=== PATIENT | male | born 1945 | race Caucasian/White ===

== ENCOUNTER 2016-06-23 19:41 | Emergency (ER) | payer OTHER ==
[~2016-06-23] VITALS: Ht 167.6 cm; Wt 64.0 kg
[~2016-06-23 19:41] MED LIST changes: -ATROPINE SULFATE 0.1 MG/ML 5ML SYR IV PRN; -BUPIVACAINE/EPINEPHRINE 0.25% 1:200,000 30 ML VIAL ONE; -CEFAZOLIN 2000 MG/60 ML D5W IV SCH; -DEXAMETHASONE SOD INJ 4 MG/ML VIAL ONE; -EpHEDrine SULFATE 50MG/5ML SYR ONE; -EpINEphrine INJ 1MG/ML AMP 1 MG/ML AMP ONE; -FENTANYL CITRATE INJ 50 MCG/1 ML 2 ML VIAL IV PRN; -FENTANYL CITRATE INJ 50 MCG/1 ML 2 ML VIAL ONE; -KETOROLAC TROMETHAMINE 15 MG/ML VIAL IV. PRN; -LABETALOL HCL IV 5 MG/ML 20ML IV PRN; -LACTATED RINGER'S 1000ML 1,000 ML IV SCH; -LIDOCAINE HCL 2% 2 ML VIAL (20MG/ML) ONE; -MIDAZOLAM HCL 1 MG/ML 2ML VIAL ONE; -ONDANSETRON INJ 2 MG/ML 2 ML VIAL IV PRN; -ONDANSETRON INJ 2 MG/ML 2 ML VIAL ONE; -OXYCODONE/ACETAMINOPHEN 5-325 TAB PO PRN; -PROPOFOL IV EMULSION 10 MG/ML 20 ML VIAL IV ONE; -ROPIVACAINE 0.5% 5 MG/ML 30 ML VIAL ONE; -SODIUM CHLORIDE 0.9% 1000ML 1,000 ML IV SCH
[2016-06-23 19:44] VITALS: TEMP 36.6; Ht 167.6 cm; Wt 64.0 kg
[2016-06-23] MEDS ORDERED: GELATIN SPONGE 12-7MM ONE (20:13)
--- NOTE | 2016-06-23 20:16 | EMERGENCY ROOM VISIT NOTE ---
ED Visit Note First contact with patient: 19:48 I did evaluate and examine this patient myself. I did guide management for the patient. I agree with the PA's assessment as discussed. Please see the PAs dictation for further details. The patient is oozing blood from both of his left shoulder incisions. There is no evidence of hematoma. The PA did speak to orthopedics he did not wish to have her placed in a sutures. He recommended a bulky dressing and follow up in the office. I did also recommend some Gelfoam with a bulky dressing to help control the bleeding.
--- NOTE | 2016-06-23 21:00 | EMERGENCY ROOM VISIT NOTE ---
History First contact with patient: 19:48 Chief Complaint: BLEEDING Stated Complaint: POST OP BLEEDING Nursing Triage Summary: Pt reports he had left shoulder surgery this am. Pt was sitting at home when he noticed bleeding from dressing. History of Present Illness The patient is a 71 year old male who presents to the Emergency Room with complaints of postoperative bleeding. The patient states that he had a left rotator cuff repair performed by Dr. Luong this morning. While the patient was sitting in his recliner, he noticed that the shoulder felt wet and states that he noticed that his dressings were soaked. He reports that his son removed some of the gauze, but they were unable to stop the bleeding, so they came here. The patient does not take blood thinners. He reports his pain is well controlled with pain medication and rates his current discomfort a 3/10. He denies any numbness or weakness. Review of Systems A complete 6 point review of systems was reviewed with the patient with pertinent positives and negatives as per history of present illness. All else were negative. Past Medical/Surgical History Medical Problems: (1) Dyslipidemia (2) Fatty liver (3) History of cold sores (4) HTN (hypertension) Surgical Problems: (1) History of inguinal hernia repair (2) History of right knee surgery Family History No pertinent family history Social History Smoking Status: Never Smoker Marital Status: Occupation Status: retired Current/Historical Medications Scheduled Alendronate Sodium (Fosamax), 70 MG PO WK Amlodipine Besylate (Norvasc), 10 MG PO QAM Aspirin (Aspirin), 81 MG PO QAM Atenolol (Tenormin), 50 MG PO QAM Diclofenac Sodium (Voltaren), 75 MG PO BID Hydralazine HCl (Hydralazine HCl), 10 MG PO BID Hydrochlorothiazide (Hctz), 25 MG PO QAM Lisinopril (Zestril), 40 MG PO QAM Multivitamin (Multivitamin), 1 TAB PO QAM Pravastatin Sodium (Pravachol), 20 MG PO HS Terazosin Hcl (Hytrin), 1 MG PO HS Scheduled PRN Ketorolac Tromethamine (Toradol), 10 MG PO Q8 PRN for Pain Oxycodone/Acetaminophen 5MG/325MG (Percocet 5MG/325MG), 1-2 TABLETS PO Q6 PRN for Pain Valacyclovir Hcl (Valtrex), 2 GM PO Q12 PRN for cold sores Allergies Coded Allergies: No Known Allergies (Unverified , 06/23/16) Physical Exam Vital Signs Date Time Temp Pulse Resp B/P Pulse Ox O2 Delivery O2 Flow Rate FiO2 06/23/16 21:10 69 18 136/59 99 06/23/16 19:44 36.6 68 16 149/67 99 Room Air Physical Exam VITALS: Vitals are noted on the nurse's note and reviewed by myself. Vital signs stable. GENERAL: This is a 71-year-old male, in no acute distress, nondiaphoretic, well- developed well-nourished. SKIN: There are 4 small sutured wounds on the anterior and superior left shoulder. There is a small amount of oozing blood from 2 of the wounds. There are no signs of infection. The shoulder is not significantly tender to palpation. HEART: Regular rate and rhythm without murmurs gallops or rubs. LUNGS: Clear to auscultation bilaterally without wheezes, rales or rhonchi. NEURO: Patient was alert and oriented to person place and time. Normal sensation to light and sharp touch. Medical Decision & Procedures Medical Decision Differential diagnosis includes postoperative bleeding, postoperative hematoma, among others. The patient was evaluated as above. There is a small amount of blood oozing from 2 of his incisions. I spoke with Dr. Laura, who was personalized living manager for orthopedics. He recommended a bulky dressing and follow up with the patient's surgeon tomorrow. I did place some Surgicel over the bleeding incisions to help with clotting. A bulky dressing was placed and bleeding was well controlled. The patient will follow-up with Dr. Luong tomorrow. He verbalized understanding of my assessment and treatment plan and was discharged home in good condition. The patient was independently evaluated by Dr. Serna, ED attending physician, who agreed with my assessment and treatment plan. Impression Primary Impression: Postoperative bleeding from incision Departure Information Dispostion Home / Self-Care Condition GOOD Referrals Xi Pulido M.D. (MEDICAL) (PCP) Omar Luong, DO Patient Instructions [facility], [facility] Additional Instructions Follow-up with Dr. Luong tomorrow. Leave the dressing in place until then.
[2016-06-23 21:10] VITALS: BP 136/59; PULSE 69; O2SAT 99
== END 2016-06-23 21:06 | disposition home or self-care (01) ==
LOC: C.EDB 19:43 → C.EDD 21:06
DX: L76.22 Postprocedural hemorrhage of skin and subcutaneous tissue following other procedure (principal); E78.5 Hyperlipidemia, unspecified; I10 Essential (primary) hypertension

== ENCOUNTER → 2016-06-23 | Day surgery (SDC) | payer OTHER ==
[2016-06-08 09:42] LABS: BASO % 0.4 %; BASO ABS # 0.02 K/uL (0-0.2); COMPLETE YES; EOS % 0.8 %; HEMATOCRIT 38.8 % (42-52); IG% 0.2 %; LYMPH % 16.3 %; LYMPH ABS # 0.84 K/uL (1.2-3.4); MEAN CELL VOLUME 91.9 fL (80-100); MEAN CORPUSCULAR HGB CONC 34.8 g/dl (32-36); MEAN PLATELET VOLUME 10.3 fL (7.4-10.4); MONO % 11.6 %; NEUT % 70.7 %; PLATELET COUNT 291 K/uL (130-400); RED BLOOD COUNT 4.22 M/uL (4.7-6.1); WHITE BLOOD COUNT 5.16 K/uL (4.8-10.8)
[2016-06-08 10:15] LABS: BLOOD UREA NITROGEN 17 mg/dl (7-18); BUN/CREATININE RATIO 25.8 (10-20); CALCIUM 9.2 mg/dl (8.5-10.1); CARBON DIOXIDE 25 mmol/L (21-32); CHLORIDE 97 mmol/L (98-107); CREATININE 0.67 mg/dl (0.60-1.40); GLUCOSE 99 mg/dl (70-99); SODIUM 132 mmol/L (136-145)
[2016-06-15 08:44] VITALS: Ht 170.2 cm; Wt 63.6 kg
[~2016-06-23] VITALS: Ht 170.2 cm; Wt 63.6 kg
[~2016-06-23] MED LIST: ALEN70TA2 PO; AMLO10TA2 PO; APR10 PO; ASPI-461 PO; ATEN50TA8 PO; ATROPINE SULFATE 0.1 MG/ML 5ML SYR IV PRN; BUPIVACAINE/EPINEPHRINE 0.25% 1:200,000 30 ML VIAL ONE; CEFAZOLIN 2000 MG/60 ML D5W IV SCH; DEXAMETHASONE SOD INJ 4 MG/ML VIAL ONE; DICL75TA2 PO; EpHEDrine SULFATE 50MG/5ML SYR ONE; EpINEphrine INJ 1MG/ML AMP 1 MG/ML AMP ONE; FENTANYL CITRATE INJ 50 MCG/1 ML 2 ML VIAL IV PRN; FENTANYL CITRATE INJ 50 MCG/1 ML 2 ML VIAL ONE; HYDR25TA4 PO; KETO10TA PO; KETOROLAC TROMETHAMINE 15 MG/ML VIAL IV. PRN; LABETALOL HCL IV 5 MG/ML 20ML IV PRN; LACTATED RINGER'S 1000ML 1,000 ML IV SCH; LIDOCAINE HCL 2% 2 ML VIAL (20MG/ML) ONE; LISI40TA PO; MIDAZOLAM HCL 1 MG/ML 2ML VIAL ONE; MULT-506 PO; ONDANSETRON INJ 2 MG/ML 2 ML VIAL IV PRN; ONDANSETRON INJ 2 MG/ML 2 ML VIAL ONE; OXYC-57 PO; OXYCODONE/ACETAMINOPHEN 5-325 TAB PO PRN; PRAV20TA2 PO; PROPOFOL IV EMULSION 10 MG/ML 20 ML VIAL IV ONE; ROPIVACAINE 0.5% 5 MG/ML 30 ML VIAL ONE; SODIUM CHLORIDE 0.9% 1000ML 1,000 ML IV SCH; TERA1CAP PO; VALA1TAB31 PO
--- NOTE | 2016-06-23 08:54 | History & Physical Bridge - [place] ---
H&P Re-Evaluation Bridge Note: I have examined the patient, reviewed the History & Physical and in the interval since the performance of the History & Physical I have noted the following changes of clinical significance: No changes noted
--- NOTE | 2016-06-23 11:34 | [facility] Post Operative Brief Note ---
Immediate Operative Summary Operative Date Jun 23, 2016. Pre-Operative Diagnosis Left Shoulder Rotator Cuff Tear, Joint Pain Post-Operative Diagnosis Same Procedure(s) Performed Left Shoulder Arthroscopy, Medium Rotator Cuff Repair, Biceps Tenodesis, Acromioplasty Surgeon Dr. Luong Customer Operations Intern Surgeon(s) Brock Butler PA-C Estimated Blood Loss Minimal Findings as above Specimens None Complication(s) None Disposition Recovery Room / PACU
--- NOTE | 2016-06-23 11:43 | Discharge Instructions-SurgCtr ---
Discharge Instructions Visit Reason for Visit: Left Shoulder Rotator Cuff Tear, Joint Pain Discharge Discharge Diagnosis / Problem: SAME ABOVE Discharge Goals Goal(s): Decrease discomfort, Improve function Activity Recommendations Activity Limitations: as noted below Lifting Limitations: until after follow-up appointment Exercise/Sports Limitations: until after follow-up appointment Shower/Bathe: tomorrow Driving or Machine Use: NOT UNTIL AFTER FOLLOW-UP Anesthesia . Post Anesthesia Instructions: If you have had General Anesthesia or IV Sedation: * Do not drive today. * Resume driving when surgeon permits. * Do not make important decisions or sign legal documents today. * Call surgeon for: 1. Temperature elevations greater than 101 degrees F. 2. Uncontrollable pain. 3. Excessive bleeding. 4. Persistent nausea and vomiting. 5. Medication intolerance (nausea, vomiting or rash). * For nausea and vomiting use only clear liquids such as: tea, soda, bouillon until nausea subsides, then gradually increase diet as tolerated. * If you have any concerns or questions, call your surgeon's office. If physician is unavailable and it is an emergency, call 911 or go to the nearest emergency room. . Instructions / Follow-Up Instructions / Follow-Up MEDICATIONS: * Resume previous medications unless instructed otherwise by your surgeon. * Always take pain medication on a full stomach or with food to avoid upset stomach. * Do not drink alcohol or drive while taking narcotics. * Ibuprofen or Tylenol may be taken if narcotic not needed. SPECIAL CARE INSTRUCTIONS: __ None _X_ Keep extremity elevated and iced x 48 hours; apply ice 20-30 minutes 8-10 times/day. May remove at night. __ Sling __24 hrs/day __ Remove at night _X_ Shoulder Immobilizer (MAY REMOVE IN 24-48 HOURS ONLY TO SHOWER AND FOR THERAPY) _X_ 24 hrs/day __ Remove at night _X_ Dressing __ Maintain until seen in office, may shower with plastic over site _X_ Remove dressings in 24-48 hours and then may shower _X_ Cover incisions with band-aids after showering __ Do not remove steri-strips Call physician if chills or temperature rises above 102 degrees or pain unrelieved by prescribed pain medications at . . Diet Recommendations Home Diet: no limitations Fluid Restriction: None Procedures Procedures Performed: Left Shoulder Arthroscopy, Medium Rotator Cuff Repair, Biceps Tenodesis, Acromioplasty Pending Studies Studies pending at discharge: no Work Instructions Return To Work: after follow-up Lifting Limitations: NO LIFTING WITH LEFT ARM Medical Emergencies . Who to Call and When: Medical Emergencies: If at any time you feel your situation is an emergency, please call 911 immediately. . Non-Emergent Contact Non-Emergency issues call your: Primary Care Provider Call Non-Emergent contact if: you have a fever, temperature is above 101.5 . . "Provider Documentation" section prepared by Wagner Butler.
[2016-06-23 12:18] VITALS: TEMP 36.4
[2016-06-23 12:37] VITALS: BP 159/72; PULSE 87; O2SAT 94
--- NOTE | 2016-06-23 12:44 | Anesthesia Progress Nt - [facility] ---
Anesthesia Post Op Note Date & Time Jun 23, 2016 at 12:43 Vital Signs Pain Intensity: 0 Vital Signs Past 12 Hours Date Time Temp Pulse Resp B/P Pulse Ox O2 Delivery O2 Flow Rate FiO2 06/23/16 12:37 87 16 159/72 94 Room Air 06/23/16 12:18 36.4 59 16 152/64 98 Room Air 06/23/16 12:12 60 13 06/23/16 12:12 61 13 96 06/23/16 12:08 147/65 06/23/16 12:07 60 9 97 06/23/16 12:07 36.4 06/23/16 12:07 60 9 06/23/16 12:03 150/74 06/23/16 12:02 61 11 97 06/23/16 12:02 61 11 06/23/16 11:58 160/79 06/23/16 11:57 61 17 100 06/23/16 11:57 62 17 06/23/16 11:54 163/67 06/23/16 11:52 60 13 100 06/23/16 11:52 61 13 06/23/16 11:48 163/76 06/23/16 11:47 64 17 100 06/23/16 11:47 64 17 06/23/16 11:44 154/62 06/23/16 11:42 56 10 06/23/16 11:42 36.3 56 20 160/68 98 Diffusion Mask 6 06/23/16 11:42 56 10 100 06/23/16 09:58 125/59 06/23/16 09:56 56 10 99 06/23/16 09:56 57 06/23/16 09:55 56 14 99 06/23/16 09:55 56 06/23/16 09:53 111/57 06/23/16 09:50 58 14 99 06/23/16 09:50 58 06/23/16 09:49 121/60 06/23/16 09:45 56 06/23/16 09:45 55 16 100 06/23/16 09:44 141/60 06/23/16 09:40 0 06/23/16 08:38 36.8 60 16 153/67 100 Room Air Notes Mental Status: alert / awake / arousable, participated in evaluation Pt Amnestic to Procedure: Yes Nausea / Vomiting: adequately controlled Pain: adequately controlled Airway Patency, RR, SpO2: stable & adequate BP & HR: stable & adequate Hydration State: stable & adequate Anesthetic Complications: no major complications apparent
--- NOTE | 2016-06-23 15:18 | OPERATIVE REPORT ---
DATE OF OPERATION: 06/23/2016 PREOPERATIVE DIAGNOSIS: Degenerative medium-sized rotator cuff tear of the left shoulder. POSTOPERATIVE DIAGNOSIS: Same. PROCEDURE: Left shoulder diagnostic arthroscopy with limited debridement, acromioplasty, medium-sized U-shaped supraspinatus rotator cuff repair, arthroscopic biceps tenodesis, and distal clavicle resection to include co-plane in the undersurface of the clavicle. SURGEON: Dr. Omar Luong. LICENSED CERTIFIED ORTHOTIST: Emanuel Butler PA-C, whose assistance was necessary for positioning the arm and helping with instrumentation. ANESTHESIA: General with a left interscalene nerve block. COMPLICATIONS: None. CONDITION: Stable to PACU. INDICATIONS: Willie is a pleasant 71-year-old male, who presented to my office with chronic left shoulder pain. MRI and clinical examination were diagnostic for severe external impingement and medium-sized degenerative rotator cuff tear. After failing conservative treatment, he elected to undergo arthroscopy. DESCRIPTION OF PROCEDURE: On 06/23/2016, he arrived at [facility] for the above procedure. He was seen in the preoperative holding area and the operative extremity was identified and signed. He was given a preoperative antibiotic and a left interscalene nerve block. He was taken back to the operating room, laid on the table in supine position and put under general anesthesia. He was then put into the beachchair position. The left shoulder was prepped and draped in sterile fashion. Time-out was done and the patient and operative extremity was properly identified. A scope was introduced into the posterior portal. Diagnostic arthroscopy showed no cartilage damage to the humeral head or the glenoid. There was some fraying of the anterior labrum. There was significant fraying of the biceps tendon. There was a large complex U-shaped tear of the supraspinatus. The infraspinatus and teres minor were intact. The subscapularis was intact. An anterior portal was made. A shaver was used to do a limited debridement of the intraarticular structures. The biceps tendon was arthroscopically tenotomized. The scope was then put into the subacromial space. A lateral portal was made. A shaver was used to do a complete subacromial and subdeltoid bursectomy. An ablator was used to tease the coracoacromial ligament off the undersurface of the acromion and a 5-0 maykel was used to complete an acromioplasty with Bigliani type 3 acromion. A shaver was used to remove any excess debris. Attention was turned to the distal clavicle. A maykel was used to co-plane the osteophytes off the undersurface of the clavicle. This significantly opened up the supraspinatus outlet. Attention was turned to the rotator cuff. An additional anterolateral portal was made and Lauren cannulas were placed in each of the lateral portals. The tuberosity was prepared with a ring curette and a microfracture. The rotator cuff was then fixed with an Arthrex SpeedBridge configuration with 4.75-mm BioComposite SwiveLock suture anchors and the biceps tendon was tenodesed to the anterior lateral anchor with an Arthrex FiberLink suture. This gave a nice rotator cuff repair and arthroscopic biceps tenodesis. Multiple pictures were taken. The scope was then placed back into the glenohumeral joint and the articular margin of the rotator cuff had been restored. Pictures were taken. Arthroscopic instruments were removed from the shoulder. Portal sites were closed with 3-0 nylon. He was then placed in a soft dressing and abduction arm sling. He was then extubated, transferred to a litter, and taken to the postanesthesia care unit in stable condition. He tolerated the procedure well. I attest to the content of the Intraoperative Record and any orders documented therein. Any exceptio ns are noted below.
== END | disposition home or self-care (01) ==
LOC: X.SURG 08:28
PROVIDERS: ATTEND Orthopaedic Surgery
DX: M75.102 Unspecified rotator cuff tear or rupture of left shoulder, not specified as traumatic (principal); E78.5 Hyperlipidemia, unspecified; I10 Essential (primary) hypertension; L76.22 Postprocedural hemorrhage of skin and subcutaneous tissue following other procedure

== ENCOUNTER 2017-08-16 13:09 | Inpatient (IN) | payer OTHER ==
[~2017-08-16] VITALS: Ht 170.2 cm; Wt 63.8 kg
[~2017-08-16 13:09] MED LIST changes: -KETO10TA PO; -OXYC-57 PO
[2017-08-16] MEDS ORDERED: ONDANSETRON INJ 2 MG/ML 2 ML VIAL IV STA (14:27)
[2017-08-16] MEDS ORDERED: SODIUM CHLORIDE 0.9% 1000ML 1,000 ML IV STA (14:27)
[2017-08-16 14:30] LABS: BASO % 0.3 %; BASO ABS # 0.01 K/uL (0-0.2); EOS % 0.3 %; EOS ABS # 0.01 K/uL (0-0.5); HEMATOCRIT 46.2 % (42-52); HEMOGLOBIN 16.5 g/dL (14.0-18.0); IG# 0.01 K/uL (0.00-0.02); LYMPH ABS # 0.56 K/uL (1.2-3.4); MEAN CELL VOLUME 90.9 fL (80-100); MEAN CORPUSCULAR HEMOGLOBIN 32.5 pg (25-34); MEAN CORPUSCULAR HGB CONC 35.7 g/dl (32-36); MEAN PLATELET VOLUME 9.8 fL (7.4-10.4); MONO % 27.8 %; MONO ABS # 1.04 K/uL (0.11-0.59); NEUT % 56.3 %; NEUT ABS # 2.11 K/uL (1.4-6.5); PLATELET COUNT 208 K/uL (130-400); RED CELL DISTRIBUTION WIDTH CV 13.4 % (11.5-14.5); RED CELL DISTRIBUTION WIDTH SD 44.7 fL (36.4-46.3); WHITE BLOOD COUNT 3.74 K/uL (4.8-10.8)
[2017-08-16 14:38] LABS: ALBUMIN 3.7 gm/dl (3.4-5.0); CALCIUM 8.8 mg/dl (8.5-10.1); CREATININE 0.93 mg/dl (0.60-1.40); POTASSIUM 3.8 mmol/L (3.5-5.1)
[2017-08-16 14:43] LABS: TOTAL PROTEIN 7.6 gm/dl (6.4-8.2)
--- NOTE | 2017-08-16 14:57 | DIAGNOSTIC IMAGING REPORT ---
CHEST ONE VIEW PORTABLE HISTORY: 72 years-old Male weak, cough acute weakness with cough COMPARISON: Chest radiograph 08/21/2014 TECHNIQUE: Portable AP view of the chest FINDINGS: Cardiac silhouette is again mildly enlarged. Atherosclerosis of the aorta. There is no pneumothorax, pleural effusion, focal airspace consolidation or overt pulmonary edema. There is mild left hemidiaphragmatic elevation. Bones of the chest appear grossly intact. IMPRESSION: No acute process. The above report was generated using voice recognition software. It may contain grammatical, syntax or spelling errors. Electronically signed by: Manohar Myles M.D. 08/16/2017 2:55 PM Dictated Date/Time: 08/16/2017 2:54 PM
[2017-08-16] MEDS ORDERED: LPT40 PO (14:59)
[2017-08-16] MEDS ORDERED: METOPROLOL TARTRATE 1 MG/ML VIAL IV STA (15:12)
[2017-08-16] MEDS ORDERED: ASPIRIN 81 MG CHEW PO STA (15:12)
--- NOTE | 2017-08-16 16:28 | History and Physical ---
History & Physical Date & Time of Service: Aug 16, 2017 at 16:28 Chief Complaint: No Energy Or Appetite, Cold,Cant Keep Food Down Primary Care Physician: Xi Pulido M.D. (MEDICAL) History of Present Illness Source: patient, family Patient is a 72 yr male with PMH of HTN, dyslipidemia, Alcohol use disorder, Tobacco use and chronic hyponatremia presents with flu like symptoms since 3-4 days duration. Patient reports worsening generalized weakness and tiredness since days. Also reports having diarrhea 2 days ago which resolved. Patient reports nausea and so has been not eating well since 3 days and also has not been taking his medications since at least 4 days. He reports having rhinitis and dry cough since 4 days. Denies any chest pain, SOB, recent travel, sick contact, change in medications, fever, chills, recent antibiotic use, dizziness , pedal edema, headache, change in vision, vomiting, abdominal pain, blood in stools, dysuria. Patient admits to having 6-8 beers a day and his last drink was on Monday. Denies any issues with withdrawal previously. Family History No pertinent family history Mother-HTN, PA at 72, CVA Father- of lung [place] Social History Smoking Status: Never Smoker Smokeless Tobacco Use: Yes Alcohol Use: heavy Drug Use: none Marital Status: Housing status: lives alone Occupational Status: retired Allergies Coded Allergies: No Known Allergies (Unverified , 08/16/17) Home Medications Scheduled Alendronate Sodium (Fosamax), 70 MG PO WK Amlodipine Besylate (Norvasc), 10 MG PO QAM Aspirin (Aspirin), 81 MG PO QAM Atenolol (Tenormin), 50 MG PO QAM Atorvastatin (Lipitor), 1 TAB PO DAILY Diclofenac Sodium (Voltaren), 75 MG PO BID Hydralazine HCl (Hydralazine HCl), 10 MG PO BID Hydrochlorothiazide (Hctz), 25 MG PO QAM Lisinopril (Zestril), 40 MG PO QAM Multivitamin (Multivitamin), 1 TAB PO QAM Terazosin Hcl (Hytrin), 1 MG PO HS Scheduled PRN Valacyclovir Hcl (Valtrex), 2 GM PO Q12 PRN for cold sores Review of Systems See HPI for pertinent positives & negatives. A total of 10 systems reviewed and were otherwise negative. Physical Exam Vital Signs Date Time Temp Pulse Resp B/P (MAP) Pulse Ox O2 Delivery O2 Flow Rate FiO2 08/16/17 16:07 77 18 149/95 98 Room Air 08/16/17 16:01 81 18 162/101 96 Room Air 08/16/17 15:28 88 148/81 08/16/17 14:52 94 20 180/106 97 Room Air 08/16/17 13:40 97 Room Air 08/16/17 13:40 96 18 162/92 97 Room Air 08/16/17 13:14 37.1 119 20 150/91 98 Room Air General Appearance: WD/WN, no apparent distress Head: normocephalic, atraumatic Eyes: normal inspection, PERRL, EOMI, sclerae normal ENT: normal ENT inspection, hearing grossly normal Neck: supple, trachea midline Respiratory/Chest: chest non-tender, lungs clear, normal breath sounds, no respiratory distress, no accessory muscle use Cardiovascular: regular rate, rhythm, no edema, no murmur Abdomen/GI: normal bowel sounds, non tender, soft Back: normal inspection Extremities/Musculoskelatal: normal inspection, no pedal edema Neurologic/Psych: transport coordinator II-XII nml as tested, no motor/sensory deficits, alert, normal mood/affect, oriented x 3 Skin: normal color, warm/dry Diagnostics Laboratory Results Results Past 24 Hours Test 08/16/17 13:40 Range/Units White Blood Count 3.74 4.8-10.8 K/uL Red Blood Count 5.08 4.7-6.1 M/uL Hemoglobin 16.5 14.0-18.0 g/dL Hematocrit 46.2 42-52 % Mean Corpuscular Volume 90.9 80-100 fL Mean Corpuscular Hemoglobin 32.5 25-34 pg Mean Corpuscular Hemoglobin Concent 35.7 32-36 g/dl Platelet Count 208 130-400 K/uL Mean Platelet Volume 9.8 7.4-10.4 fL Neutrophils (%) (Auto) 56.3 % Lymphocytes (%) (Auto) 15.0 % Monocytes (%) (Auto) 27.8 % Eosinophils (%) (Auto) 0.3 % Basophils (%) (Auto) 0.3 % Neutrophils # (Auto) 2.11 1.4-6.5 K/uL Lymphocytes # (Auto) 0.56 1.2-3.4 K/uL Monocytes # (Auto) 1.04 0.11-0.59 K/uL Eosinophils # (Auto) 0.01 0-0.5 K/uL Basophils # (Auto) 0.01 0-0.2 K/uL RDW Standard Deviation 44.7 36.4-46.3 fL RDW Coefficient of Variation 13.4 11.5-14.5 % Immature Granulocyte % (Auto) 0.3 % Immature Granulocyte # (Auto) 0.01 0.00-0.02 K/uL Sodium Level 129 136-145 mmol/L Potassium Level 3.8 3.5-5.1 mmol/L Chloride Level 93 98-107 mmol/L Carbon Dioxide Level 23 21-32 mmol/L Anion Gap 13.0 3-11 mmol/L Blood Urea Nitrogen 15 7-18 mg/dl Creatinine 0.93 0.60-1.40 mg/dl Est Creatinine Clear Calc Drug Dose 66.0 ml/min Estimated GFR () 94.7 Estimated GFR (Non- 81.7 BUN/Creatinine Ratio 16.6 10-20 Random Glucose 110 70-99 mg/dl Calcium Level 8.8 8.5-10.1 mg/dl Magnesium Level 1.9 1.8-2.4 mg/dl Total Bilirubin 0.8 0.2-1 mg/dl Aspartate Amino Transf (AST/SGOT) 67 15-37 U/L Alanine Aminotransferase (ALT/SGPT) 51 12-78 U/L Alkaline Phosphatase 67 45-117 U/L Troponin I 0.109 0-0.045 ng/ml Total Protein 7.6 6.4-8.2 gm/dl Albumin 3.7 3.4-5.0 gm/dl Globulin 3.9 2.5-4.0 gm/dl Albumin/Globulin Ratio 0.9 0.9-2 Thyroid Stimulating Hormone (TSH) 1.360 0.300-4.500 uIu/ml Diagnostic Radiology CXR: No acute process EKG EKG: Normal sinus rhythm Left axis deviation Nonspecific T wave changes in Lateral leads Impression Assessment and Plan Uncontrolled Hypertension: Secondary to medication non compliance 2/2 nausea Restart Amlodipine, Lisinopril, Atenolol, Hydralazine Hold HCTZ as patient is clinically dehydrated monitor Flu Like Symptoms: Dehydration: Check Influenza screen No indication for antibiotics for now Consider to get stool studies if diarrhea reoccurs Droplet precaution IV fluids UA pending, denies dysuria CXR:No acute process. Acute on Chronic Hyponatremia: In setting of dehydration, chronic alcohol use and use of HCTZ Hold HCTZ start IV fluids Monitor sodium levels Elevated Troponin: Likely demand ischemia secondary to Uncontrolled HTN Patient denies chest pain/discomfort EKG: Non specific T wave changes in lateral leads Trend Cardiac enzymes Check ECHO for wall motion abnormality repeat EKG in AM Elevated Blood glucose levels: Check A1C Dyslipidemia: continue statins Alcohol use disorder: Drinks 6-8 beers per day Start thiamine, folic acid Patient prefers not to be started on alcohol withdrawal protocol meds for now monitor Tobacco use disorder: Chews tobacco Refuses Nicotine patch BPH: Continue Terazosin DVT Px: Lovenox SQ Code Status: DNI only (OK with CPR) on my discussion with Patient Disposition: Expect to discharge home when stable Resuscitation Status VTE Prophylaxis Will order VTE Prophylaxis: Yes
[2017-08-16] MEDS ORDERED: NITROGLYCERIN 0.4 MG SL PER TAB CHARGE SL PRN (17:15)
[2017-08-16] MEDS ORDERED: ONDANSETRON INJ 2 MG/ML 2 ML VIAL IV PRN (17:15)
[2017-08-16] MEDS ORDERED: ACETAMINOPHEN 325 MG TAB PO PRN (17:15)
[2017-08-16] MEDS ORDERED: THIAMINE HCL 100 MG TAB PO ONE (17:30)
--- NOTE | 2017-08-16 17:30 | EMERGENCY ROOM VISIT NOTE ---
History Report prepared by Judson: Jay Marin Under the Supervision of: Dr. Devon Guadarrama M.D. First contact with patient: 14:22 Chief Complaint: WEAKNESS Stated Complaint: NO ENERGY OR APPETITE, COLD,CANT KEEP FOOD DOWN History of Present Illness The patient is a 72 year old male who presents to the Emergency Room with complaints of worsening generalized weakness beginning three day ago. The patient also complains of fatigue. He states that he has decreased appetite due to having diarrhea with eating. He states that he has been hydrating well recently. The patient has a history of similar symptoms occurring a few years ago associated with dehydration and pneumonia. He denies vomiting, abdominal pain, nausea, or known fevers. He denies recent medication changes. On second evaluation. Patient admits that he has not taken his home medications in three days. Source of History: patient Onset: Three days ago Position: other (generalized) Quality: other (weakness) Timing: worsening Associated Symptoms: + diarrhea, + fatigue, No fevers, No nausea, No vomiting, No abdominal pain Review of Systems See HPI for pertinent positives & negatives. A total of 10 systems reviewed and were otherwise negative. Past Medical & Surgical Medical Problems: (1) Dehydration (2) Dyslipidemia (3) Fatty liver (4) History of cold sores (5) HTN (hypertension) Surgical Problems: (1) History of inguinal hernia repair (2) History of right knee surgery Family History No pertinent family history Social History Smoking Status: Never Smoker Marital Status: Housing Status: lives alone Occupation Status: retired Current/Historical Medications Scheduled Alendronate Sodium (Fosamax), 70 MG PO WK Amlodipine Besylate (Norvasc), 10 MG PO QAM Aspirin (Aspirin), 81 MG PO QAM Atenolol (Tenormin), 50 MG PO QAM Atorvastatin (Lipitor), 1 TAB PO DAILY Diclofenac Sodium (Voltaren), 75 MG PO BID Hydralazine HCl (Hydralazine HCl), 10 MG PO BID Hydrochlorothiazide (Hctz), 25 MG PO QAM Lisinopril (Zestril), 40 MG PO QAM Multivitamin (Multivitamin), 1 TAB PO QAM Terazosin Hcl (Hytrin), 1 MG PO HS Scheduled PRN Valacyclovir Hcl (Valtrex), 2 GM PO Q12 PRN for cold sores Allergies Coded Allergies: No Known Allergies (Unverified , 08/16/17) Physical Exam Vital Signs Date Time Temp Pulse Resp B/P (MAP) Pulse Ox O2 Delivery O2 Flow Rate FiO2 08/16/17 17:07 78 18 151/83 98 Room Air 08/16/17 16:07 77 18 149/95 98 Room Air 08/16/17 16:01 81 18 162/101 96 Room Air 08/16/17 15:28 88 148/81 08/16/17 14:52 94 20 180/106 97 Room Air 08/16/17 13:40 97 Room Air 08/16/17 13:40 96 18 162/92 97 Room Air 08/16/17 13:14 37.1 119 20 150/91 98 Room Air Physical Exam GENERAL: Patient is in no acute distress. HEENT: No acute trauma, normocephalic atraumatic, mucous membranes moist, no nasal congestion, no scleral icterus. NECK: No stridor, no adenopathy, no meningismus, trachea is midline. LUNGS: Clear to auscultation bilaterally, no wheeze, no rhonchi, breath sounds equal. HEART: Mildly tachycardic with a regular rhythm. No murmurs. ABDOMEN: Soft, nontender, bowel sounds positive, no hernias, no peritonitis. EXTREMITIES: No cyanosis or edema, full range of motion of all the joints without pain or difficulty, no signs for acute trauma. NEUROLOGIC: Oriented x 3, no acute motor or sensory deficits, no focal weakness. SKIN: No rash, no jaundice, no diaphoresis. Medical Decision & Procedures ER Provider Diagnostic Interpretation: Radiology results as stated below per my review and radiologist interpretation: CHEST ONE VIEW PORTABLE FINDINGS: Cardiac silhouette is again mildly enlarged. Atherosclerosis of the aorta. There is no pneumothorax, pleural effusion, focal airspace consolidation or overt pulmonary edema. There is mild left hemidiaphragmatic elevation. Bones of the chest appear grossly intact. IMPRESSION: No acute process. The above report was generated using voice recognition software. It may contain grammatical, syntax or spelling errors. Electronically signed by: Manohar Myles M.D. 08/16/2017 2:55 PM Laboratory Results 08/16/17 13:40 Red Blood Count 5.08, Mean Corpuscular Volume 90.9, Mean Corpuscular Hemoglobin 32.5, Mean Corpuscular Hemoglobin Concent 35.7, Mean Platelet Volume 9.8, Neutrophils (%) (Auto) 56.3, Lymphocytes (%) (Auto) 15.0, Monocytes (%) (Auto) 27.8, Eosinophils (%) (Auto) 0.3, Basophils (%) (Auto) 0.3, Neutrophils # (Auto ) 2.11, Lymphocytes # (Auto) 0.56, Monocytes # (Auto) 1.04, Eosinophils # (Auto ) 0.01, Basophils # (Auto) 0.01 08/16/17 13:40 Test 08/16/17 13:40 White Blood Count 3.74 K/uL (4.8-10.8) Red Blood Count 5.08 M/uL (4.7-6.1) Hemoglobin 16.5 g/dL (14.0-18.0) Hematocrit 46.2 % (42-52) Mean Corpuscular Volume 90.9 fL (80-100) Mean Corpuscular Hemoglobin 32.5 pg (25-34) Mean Corpuscular Hemoglobin Concent 35.7 g/dl (32-36) Platelet Count 208 K/uL (130-400) Mean Platelet Volume 9.8 fL (7.4-10.4) Neutrophils (%) (Auto) 56.3 % Lymphocytes (%) (Auto) 15.0 % Monocytes (%) (Auto) 27.8 % Eosinophils (%) (Auto) 0.3 % Basophils (%) (Auto) 0.3 % Neutrophils # (Auto) 2.11 K/uL (1.4-6.5) Lymphocytes # (Auto) 0.56 K/uL (1.2-3.4) Monocytes # (Auto) 1.04 K/uL (0.11-0.59) Eosinophils # (Auto) 0.01 K/uL (0-0.5) Basophils # (Auto) 0.01 K/uL (0-0.2) RDW Standard Deviation 44.7 fL (36.4-46.3) RDW Coefficient of Variation 13.4 % (11.5-14.5) Immature Granulocyte % (Auto) 0.3 % Immature Granulocyte # (Auto) 0.01 K/uL (0.00-0.02) Anion Gap 13.0 mmol/L (3-11) Est Creatinine Clear Calc Drug Dose 66.0 ml/min Estimated GFR () 94.7 Estimated GFR (Non- 81.7 BUN/Creatinine Ratio 16.6 (10-20) Calcium Level 8.8 mg/dl (8.5-10.1) Magnesium Level 1.9 mg/dl (1.8-2.4) Total Bilirubin 0.8 mg/dl (0.2-1) Aspartate Amino Transf (AST/SGOT) 67 U/L (15-37) Alanine Aminotransferase (ALT/SGPT) 51 U/L (12-78) Alkaline Phosphatase 67 U/L (45-117) Troponin I 0.109 ng/ml (0-0.045) Total Protein 7.6 gm/dl (6.4-8.2) Albumin 3.7 gm/dl (3.4-5.0) Globulin 3.9 gm/dl (2.5-4.0) Albumin/Globulin Ratio 0.9 (0.9-2) Thyroid Stimulating Hormone (TSH) 1.360 uIu/ml (0.300-4.500) Laboratory results reviewed by me. Medications Administered Medications (Trade) Dose Ordered Sig/Jerrod Route Start Time Stop Time Status Last Admin Dose Admin Sodium Chloride 1,000 ml @ 999 mls/hr Q1H1M STAT IV 08/16/17 14:27 08/16/17 15:27 DC 08/16/17 14:51 999 MLS/HR Ondansetron HCl (Zofran Inj) 4 mg NOW STAT IV 08/16/17 14:27 08/16/17 14:30 DC 08/16/17 14:51 4 MG Aspirin (Aspirin Chew) 324 mg NOW STAT PO 08/16/17 15:12 08/16/17 15:15 DC 08/16/17 15:28 324 MG Metoprolol Tartrate (Lopressor Iv) 5 mg NOW STAT IV 08/16/17 15:12 08/16/17 15:15 DC 08/16/17 15:28 5 MG ECG Per My Interpretation Indication: weakness Rate (beats per minute): 95 Rhythm: normal sinus Findings: PVC, other (Old inferior infarct. ) ED Course 1424: The patient was evaluated in room C12B. A complete history and physical exam was performed. 1427: Ordered Zofran Inj 4 mg IV, Sodium Chloride 1000 ml @ 999 mls/hr IV. 1512: Ordered Lopressor 5 mg IV, Aspirin Chew 324 mg PO. 1514: Upon reexamination the patient is resting comfortably. I discussed results and treatment plan with the patient. He verbalizes agreement and understanding. [facility] We discussed the patient's results and findings. The patient will be evaluated by [facility] for further management. Medical Decision The patient is a 72 year old male who presents to the ED with complaints of generalized weakness. Differential diagnoses considered include dehydration, electrolyte imbalance, anemia, pneumonia, cardiac ischemia, UTI, and thyroid disorder. There is no leukocytosis or concerning anemia. No significant electrolyte abnormally, kidney failure or hepatitis. The patient appears to be in a euthyroid state. EKG shows a normal sinus rhythm with an old in inferior infarct, no acute ischemia. Cardiac enzyme testing times one is somewhat elevated, this is concerning for cardiac injury or strain. Chest film does not show pneumonia or CHF. The patient received IV saline, IV Zofran. With the troponin elevation, he received oral aspirin. Because of his hypertension and the elevated troponin, he did receive IV Lopressor, this helped his heart rate and blood pressure. The patient requires a hospital stay. He presents with weakness and fatigue. He has had some diarrhea but on workup, he has an elevated troponin. Further cardiac testing is required. I spoke to the patient and the child welfare caseworker. The on-call hospitalist was consulted. Medication Reconcilliation Current Medication List: was personally reviewed by me Blood Pressure Screening Patient's blood pressure: Elevated blood pressure Blood pressure disposition: Referred to PCP Consults Time Called: [id number] Consulting Physician[facility] Return[facility] Call: [phone] Discussed the patient's case. The patient will be evaluated for further management. Impression Primary Impression: Weakness Additional Impressions: Elevated troponin Dehydration Scribe Attestation The scribe's documentation has been prepared under my direction and personally reviewed by me in its entirety. I confirm that the note above accurately reflects all work, treatment, procedures, and medical decision making performed by me. Departure Information Dispostion Being Evaluated By Hospitalist Referrals Xi Pulido M.D. (MEDICAL) (PCP) Patient Instructions My [facility] Problem Qualifiers
[2017-08-16] MEDS: SODIUM CHLORIDE 0.9% 1000ML 1,000 ML IV SCH (19:17)
[2017-08-16 19:28] VITALS: BP 147/87; PULSE 80; TEMP 36.5; Ht 170.2 cm; Wt 63.8 kg
[2017-08-16 19:37] LABS: INFLUENZA A PCR Neg for Influ A (NEG); INFLUENZA B PCR POS for Influ B (NEG)
[2017-08-16 20:00] VITALS: O2SAT 97
[2017-08-16 20:16] VITALS: BP 149/92; PULSE 82; TEMP 36.8; O2SAT 99
[2017-08-16] MEDS: HydrALAZINE 10 MG TAB PO SCH (21:52)
[2017-08-16 23:53] VITALS: BP 110/71; PULSE 87; TEMP 36.7; O2SAT 97
[2017-08-17] VITALS (9 sets, daily range): BP systolic 107–141; BP diastolic 66–81; PULSE 66–92; TEMP 36.2–36.8; O2SAT 95–98
[2017-08-17] MEDS: OSELTAMIVIR PHOSPHATE 75 MG CAP PO SCH ×3 (00:28→21:08)
[2017-08-17] MEDS: ENOXAPARIN 40 MG/0.4 ML SYR SC SCH (06:23)
[2017-08-17] MEDS ORDERED: ALENDRONATE SODIUM 70 MG TAB PO SCH (06:30)
[2017-08-17] MEDS: ASPIRIN 81 MG ECTAB PO SCH (07:40)
[2017-08-17] MEDS: THIAMINE HCL 100 MG TAB PO SCH (07:40)
[2017-08-17] MEDS: HydrALAZINE 10 MG TAB PO SCH ×2 (07:41→21:09)
[2017-08-17] MEDS: MULTIVITAMIN TAB PO SCH (07:41)
[2017-08-17] MEDS: AMLODIPINE BESYLATE 5 MG TAB PO SCH (07:41)
[2017-08-17] MEDS: ATORVASTATIN 40 MG TAB PO SCH (07:42)
[2017-08-17] MEDS: LISINOPRIL 40 MG TAB PO SCH (07:42)
[2017-08-17] MEDS: SODIUM CHLORIDE 0.9% 1000ML 1,000 ML IV SCH (07:43)
[2017-08-17 07:54] LABS: HEMATOCRIT 43.3 % (42-52); HEMOGLOBIN 15.4 g/dL (14.0-18.0); MEAN CELL VOLUME 91.9 fL (80-100); MEAN CORPUSCULAR HEMOGLOBIN 32.7 pg (25-34); MEAN CORPUSCULAR HGB CONC 35.6 g/dl (32-36); MEAN PLATELET VOLUME 10.4 fL (7.4-10.4); PLATELET COUNT 200 K/uL (130-400); RED CELL DISTRIBUTION WIDTH CV 13.6 % (11.5-14.5); RED CELL DISTRIBUTION WIDTH SD 45.4 fL (36.4-46.3); WHITE BLOOD COUNT 4.08 K/uL (4.8-10.8)
[2017-08-17 08:19] LABS: CALCIUM 8.1 mg/dl (8.5-10.1); CREATININE 0.72 mg/dl (0.60-1.40); POTASSIUM 3.6 mmol/L (3.5-5.1)
[2017-08-17 08:31] LABS: HEMOGLOBIN A1C 5.1 % (4.5-5.6)
--- NOTE | 2017-08-17 10:15 | ECHOCARDIOGRAM REPORT ---
*NOTICE TO RECEIVING LIBERTARIAN AGENCY This information is strictly Confidential and protected under [place] law. [place] law prohibits you from making any further disclosure of this information unless further disclosure is expressly permitted by the written consent of the person to whom it pertains or is authorized by law. A general authorization for the release of medical or other information is not sufficient for this purpose. Hospital accepts no responsibility if the information is made available to any other person, INCLUDING THE PATIENT. Interpretation Summary * Name: ISI BRYAN Study Date: 08/17/2017 08:29 AM BP: 138/73 mmHg * Patient Location: C.2T\S\S244\S\1 HR: 92 * : 1945 (M/d/yyyy) Gender: Male Height: 67 in * Age: 72 yrs Ethnicity: CA Weight: 143 lb * Ordering Physician: Humble Gimenez * Referring Physician: No Doctor, Assigned * Performed By: Rae Bonds RDCS * * Reason For Study: TROPONIN ELEVATION * BSA: 1.8 m2 * -- Conclusions -- * Normal LV chamber size with moderate concentric LVH, sigmoid appearing septum. * Normal LV systolic function, EF 60-65%. * No segmental left ventricular wall motion abnormalities are noted. * Grade I diastolic dysfunction. * Aortic valve sclerosis moderate, without significant aortic valvular stenosis. Procedure Details * A complete two-dimensional transthoracic echocardiogram was performed (2D, M-mode, Doppler and color flow Doppler). Left Ventricle * The left ventricle is normal in size. * There is moderate concentric left ventricular hypertrophy. * The basal septum is thickened and angulated consistent with sigmoid septum. * Ejection Fraction = 60-65%. * Left ventricular systolic function is normal. * No segmental left ventricular wall motion abnormalities are noted. * The left ventricular wall motion is normal. Right Ventricle * The right ventricular cavity size is normal (basal dimension <4.2 cm in right ventricular apical 4-chamber view). * The right ventricular systolic function is normal as assessed by tricuspid annular plane systolic excursion (TAPSE) (normal >1.5 cm). Atria * The left atrial size is normal. * Right atrial size is normal. * No ASD detected; PFO is not assessed. Mitral Valve * The mitral valve is normal in structure and function. Tricuspid Valve * The tricuspid valve is normal in structure and function. Aortic Valve * The aortic valve is trileaflet. * Aortic valve sclerosis moderate, without significant aortic valvular stenosis. * There is no significant aortic regurgitation. Pulmonic Valve * The pulmonary valve is not well seen, but the Doppler examination is normal without significant regurgitation or stenosis. Great Vessels * The aortic root is normal size. Pericardium/Pleural * There is no pericardial effusion. Left Ventricular Diastolic Function * Grade I diastolic dysfunction, (abnormal relaxation pattern). MMode 2D Measurements and Calculations IVSd 1.7 cm IVSs 2.3 cm LVIDd 3.3 cm LVIDs 2.0 cm LVPWd 1.5 cm LVPWs 1.8 cm IVS/LVPW 1.1 FS 37.8 % EDV(Teich) 43.9 ml ESV(Teich) 13.5 ml EF(Teich) 69.2 % EDV(cubed) 35.7 ml ESV(cubed) 8.6 ml EF(cubed) 75.9 % % IVS thick 38.4 % % LVPW thick 16.1 % LV mass(C)d 201.0 grams LV mass(C)dI 114.6 grams/m\S\2 LV mass(C)s 188.3 grams LV mass(C)sI 107.4 grams/m\S\2 SV(Teich) 30.4 ml SI(Teich) 17.3 ml/m\S\2 SV(cubed) 27.1 ml SI(cubed) 15.5 ml/m\S\2 Ao root diam 3.4 cm Ao root area 9.3 cm\S\2 LA dimension 3.6 cm LA/Ao 1.0 LVAd ap4 19.6 cm\S\2 LVLd ap4 7.3 cm EDV(MOD-sp4) 43.3 ml EDV(sp4-el) 44.8 ml LVAs ap4 11.1 cm\S\2 LVLs ap4 6.1 cm ESV(MOD-sp4) 18.5 ml ESV(sp4-el) 17.0 ml EF(MOD-sp4) 57.2 % EF(sp4-el) 62.1 % LVAd ap2 20.7 cm\S\2 LVLd ap2 7.9 cm EDV(MOD-sp2) 43.6 ml EDV(sp2-el) 46.1 ml LVAs ap2 12.0 cm\S\2 LVLs ap2 6.6 cm ESV(MOD-sp2) 20.3 ml ESV(sp2-el) 18.5 ml EF(MOD-sp2) 53.3 % EF(sp2-el) 59.8 % LVLd %diff 7.7 % EDV(MOD-bp) 45.9 ml LVLs %diff 7.6 % ESV(MOD-bp) 20.3 ml EF(MOD-bp) 55.6 % SV(MOD-sp4) 24.7 ml SI(MOD-sp4) 14.1 ml/m\S\2 SV(MOD-sp2) 23.3 ml SI(MOD-sp2) 13.3 ml/m\S\2 SV(MOD-bp) 25.5 ml SI(MOD-bp) 14.6 ml/m\S\2 SV(sp4-el) 27.8 ml SI(sp4-el) 15.9 ml/m\S\2 SV(sp2-el) 27.6 ml SI(sp2-el) 15.7 ml/m\S\2 Doppler Measurements and Calculations MV E max radha 45.0 cm/sec MV A max radha 66.1 cm/sec MV E/A 0.68 MV dec time 0.30 sec Ao V2 max 111.0 cm/sec Ao max PG 4.9 mmHg Ao max PG (full) 1.4 mmHg LV V1 max PG 3.5 mmHg LV V1 max 94.0 cm/sec TR max radha 226.5 cm/sec
--- NOTE | 2017-08-17 13:07 | Progress Note ---
Internal Med Progress Note Date of Service: Aug 17, 2017. Provider Documentation: SUBJECTIVE: Seen and examined at bedside Reports generalized weakness and poor appetite Denies chest pain, SOB, dizziness Overall feels better Denies any withdrawal symptoms OBJECTIVE: Vital Signs-as noted below Physical Exam: General Appearance:Moderately built and nourished, no apparent distress Head: normocephalic, Atraumatic Eyes: normal inspection, EOMI, PERRL Neck: supple, Trachea midline Respiratory/Chest: Normal breath sounds, CTA Cardiovascular: S1, S2, No murmur Abdomen/GI:Soft, Non tender, Bowel sounds present Extremities/Musculoskelatal:normal inspection, no edema Neurologic/Psych:AAOX3, grossly no focal neurological deficits Skin: normal color, warm Lab data as noted below. ASSESSMENT & PLAN: Influenza B: Dehydration: Continue Tamiflu Day # 2 Consider to get stool studies if diarrhea reoccurs Droplet precaution CXR:No acute process Uncontrolled Hypertension: Secondary to medication non compliance 2/2 nausea BP improved continue Amlodipine, Lisinopril, Atenolol, Hydralazine Plan to resume HCTZ as able monitor Acute on Chronic Hyponatremia: In setting of dehydration, chronic alcohol use and use of HCTZ Hold HCTZ Sodium levels improved DC IV fluids Monitor sodium levels Elevated Troponin: Likely demand ischemia secondary to Uncontrolled HTN Patient denies chest pain/discomfort EKG: Non specific T wave changes in lateral leads Cardiac enzymes mildly elevated ECHO:No segmental left ventricular wall motion abnormalities are noted Advised stress test as outpatient Elevated Blood glucose levels: A1C:5.1 monitor Dyslipidemia: continue statins Alcohol use disorder: Drinks 6-8 beers per day continue thiamine, folic acid Patient prefers not to be started on alcohol withdrawal protocol meds for now monitor Tobacco use disorder: Chews tobacco Refuses Nicotine patch BPH: Continue Terazosin DVT Px: Lovenox SQ Code Status: DNI only (OK with CPR) Disposition: Expect to discharge home when stable PROCEDURES: ECHO: * Normal LV chamber size with moderate concentric LVH, sigmoid appearing septum. * Normal LV systolic function, EF 60-65%. * No segmental left ventricular wall motion abnormalities are noted. * Grade I diastolic dysfunction. * Aortic valve sclerosis moderate, without significant aortic valvular stenosis. Vital Signs: Date Time Temp Pulse Resp B/P (MAP) Pulse Ox O2 Delivery O2 Flow Rate FiO2 08/17/17 12:00 97 Room Air 08/17/17 11:33 36.8 66 18 125/69 (87) 95 08/17/17 08:00 97 Room Air 08/17/17 07:23 36.7 92 18 138/73 (94) 97 Room Air 08/17/17 04:53 36.8 87 17 129/76 (93) 97 Room Air 08/17/17 04:00 97 Room Air 08/17/17 00:01 97 Room Air 08/16/17 23:53 36.7 87 19 110/71 (84) 97 Room Air 08/16/17 20:16 36.8 82 20 149/92 (111) 99 Room Air 08/16/17 20:00 97 Room Air 08/16/17 19:28 36.5 80 18 147/87 Room Air 08/16/17 18:54 79 18 125/89 97 08/16/17 17:07 78 18 151/83 98 Room Air 08/16/17 16:07 77 18 149/95 98 Room Air 08/16/17 16:01 81 18 162/101 96 Room Air 08/16/17 15:28 88 148/81 08/16/17 14:52 94 20 180/106 97 Room Air 08/16/17 13:40 97 Room Air 08/16/17 13:40 96 18 162/92 97 Room Air 08/16/17 13:14 37.1 119 20 150/91 98 Room Air Lab Results: Results Past 24 Hours Test 08/16/17 13:40 08/16/17 18:35 08/16/17 19:44 08/17/17 01:43 Range/Units White Blood Count 3.74 4.8-10.8 K/uL Red Blood Count 5.08 4.7-6.1 M/uL Hemoglobin 16.5 14.0-18.0 g/dL Hematocrit 46.2 42-52 % Mean Corpuscular Volume 90.9 80-100 fL Mean Corpuscular Hemoglobin 32.5 25-34 pg Mean Corpuscular Hemoglobin Concent 35.7 32-36 g/dl Platelet Count 208 130-400 K/uL Mean Platelet Volume 9.8 7.4-10.4 fL Neutrophils (%) (Auto) 56.3 % Lymphocytes (%) (Auto) 15.0 % Monocytes (%) (Auto) 27.8 % Eosinophils (%) (Auto) 0.3 % Basophils (%) (Auto) 0.3 % Neutrophils # (Auto) 2.11 1.4-6.5 K/uL Lymphocytes # (Auto) 0.56 1.2-3.4 K/uL Monocytes # (Auto) 1.04 0.11-0.59 K/uL Eosinophils # (Auto) 0.01 0-0.5 K/uL Basophils # (Auto) 0.01 0-0.2 K/uL RDW Standard Deviation 44.7 36.4-46.3 fL RDW Coefficient of Variation 13.4 11.5-14.5 % Immature Granulocyte % (Auto) 0.3 % Immature Granulocyte # (Auto) 0.01 0.00-0.02 K/uL Prothrombin Time 10.6 9.0-12.0 SECONDS Prothromb Time International Ratio 1.0 0.9-1.1 Sodium Level 129 136-145 mmol/L Potassium Level 3.8 3.5-5.1 mmol/L Chloride Level 93 98-107 mmol/L Carbon Dioxide Level 23 21-32 mmol/L Anion Gap 13.0 3-11 mmol/L Blood Urea Nitrogen 15 7-18 mg/dl Creatinine 0.93 0.60-1.40 mg/dl Est Creatinine Clear Calc Drug Dose 66.0 ml/min Estimated GFR () 94.7 Estimated GFR (Non- 81.7 BUN/Creatinine Ratio 16.6 10-20 Random Glucose 110 70-99 mg/dl Calcium Level 8.8 8.5-10.1 mg/dl Magnesium Level 1.9 1.8-2.4 mg/dl Total Bilirubin 0.8 0.2-1 mg/dl Aspartate Amino Transf (AST/SGOT) 67 15-37 U/L Alanine Aminotransferase (ALT/SGPT) 51 12-78 U/L Alkaline Phosphatase 67 45-117 U/L Troponin I 0.109 0.129 0.111 0-0.045 ng/ml Total Protein 7.6 6.4-8.2 gm/dl Albumin 3.7 3.4-5.0 gm/dl Globulin 3.9 2.5-4.0 gm/dl Albumin/Globulin Ratio 0.9 0.9-2 Thyroid Stimulating Hormone (TSH) 1.360 0.300-4.500 uIu/ml Influenza Type A (RT-PCR) Neg for Influ A NEG Influenza Type B (RT-PCR) POS for Influ B NEG Test 08/17/17 07:34 Range/Units White Blood Count 4.08 4.8-10.8 K/uL Red Blood Count 4.71 4.7-6.1 M/uL Hemoglobin 15.4 14.0-18.0 g/dL Hematocrit 43.3 42-52 % Mean Corpuscular Volume 91.9 80-100 fL Mean Corpuscular Hemoglobin 32.7 25-34 pg Mean Corpuscular Hemoglobin Concent 35.6 32-36 g/dl RDW Standard Deviation 45.4 36.4-46.3 fL RDW Coefficient of Variation 13.6 11.5-14.5 % Platelet Count 200 130-400 K/uL Mean Platelet Volume 10.4 7.4-10.4 fL Sodium Level 135 136-145 mmol/L Potassium Level 3.6 3.5-5.1 mmol/L Chloride Level 102 98-107 mmol/L Carbon Dioxide Level 24 21-32 mmol/L Anion Gap 10.0 3-11 mmol/L Blood Urea Nitrogen 17 7-18 mg/dl Creatinine 0.72 0.60-1.40 mg/dl Est Creatinine Clear Calc Drug Dose 83.0 ml/min Estimated GFR () 108.0 Estimated GFR (Non- 93.2 BUN/Creatinine Ratio 23.2 10-20 Random Glucose 120 70-99 mg/dl Estimated Average Glucose 100 mg/dl Hemoglobin A1c 5.1 4.5-5.6 % Calcium Level 8.1 8.5-10.1 mg/dl Magnesium Level 1.9 1.8-2.4 mg/dl
[2017-08-17] MEDS ORDERED: ZOLPIDEM TARTRATE 5 MG TAB PO PRN (15:30)
[2017-08-18] VITALS (7 sets, daily range): BP systolic 139–167; BP diastolic 74–98; PULSE 67–78; TEMP 36.6–36.9; O2SAT 97–99
[2017-08-18] MEDS: ENOXAPARIN 40 MG/0.4 ML SYR SC SCH (06:24)
[2017-08-18] MEDS ORDERED: ALENDRONATE SODIUM 70 MG TAB PO SCH (06:30)
[2017-08-18 07:42] LABS: HEMATOCRIT 50.9 % (42-52); MEAN CORPUSCULAR HEMOGLOBIN 32.5 pg (25-34); MEAN CORPUSCULAR HGB CONC 35.4 g/dl (32-36); MEAN PLATELET VOLUME 10.6 fL (7.4-10.4); PLATELET COUNT 245 K/uL (130-400); RED CELL DISTRIBUTION WIDTH CV 13.8 % (11.5-14.5); RED CELL DISTRIBUTION WIDTH SD 46.9 fL (36.4-46.3); WHITE BLOOD COUNT 11.22 K/uL (4.8-10.8)
[2017-08-18 08:14] LABS: CALCIUM 8.6 mg/dl (8.5-10.1); CREATININE 0.85 mg/dl (0.60-1.40); POTASSIUM 3.6 mmol/L (3.5-5.1)
[2017-08-18] MEDS: LISINOPRIL 40 MG TAB PO SCH (08:21)
[2017-08-18] MEDS: THIAMINE HCL 100 MG TAB PO SCH (08:21)
[2017-08-18] MEDS: AMLODIPINE BESYLATE 5 MG TAB PO SCH (08:22)
[2017-08-18] MEDS: OSELTAMIVIR PHOSPHATE 75 MG CAP PO SCH ×2 (08:22→20:43)
[2017-08-18] MEDS: ASPIRIN 81 MG ECTAB PO SCH (08:23)
[2017-08-18] MEDS: MULTIVITAMIN TAB PO SCH (08:23)
[2017-08-18] MEDS: ATORVASTATIN 40 MG TAB PO SCH (08:23)
[2017-08-18] MEDS: HydrALAZINE 10 MG TAB PO SCH ×2 (08:23→20:42)
--- NOTE | 2017-08-18 09:22 | Progress Note ---
Internal Med Progress Note Date of Service: Aug 18, 2017. Provider Documentation: SUBJECTIVE: Seen and examined at bedside Feels very weak and tires easily Poor appetite Reports having nightmare yesterday and was not able to sleep well Cough, rhinitis much improved Denies chest pain, SOB, dizziness OBJECTIVE: Vital Signs-as noted below Physical Exam: General Appearance:Moderately built and nourished, no apparent distress Head: normocephalic, Atraumatic Eyes: normal inspection, EOMI, PERRL Neck: supple, Trachea midline Respiratory/Chest: Normal breath sounds, CTA Cardiovascular: S1, S2, No murmur Abdomen/GI:Soft, Non tender, Bowel sounds present Extremities/Musculoskelatal:normal inspection, no edema Neurologic/Psych:AAOX3, grossly no focal neurological deficits Skin: normal color, warm Lab data as noted below. ASSESSMENT & PLAN: Influenza B: Dehydration/Generalized weakness: Continue Tamiflu Day # 3 States diarrhea resolved Consider to get stool studies if diarrhea reoccurs Droplet precaution CXR:No acute process Uncontrolled Hypertension: Secondary to medication non compliance 2/2 nausea BP stable continue Amlodipine, Lisinopril, Atenolol, Hydralazine Plan to resume HCTZ as able monitor Acute on Chronic Hyponatremia: In setting of dehydration, chronic alcohol use and use of HCTZ Hold HCTZ Sodium levels near normal DC IV fluids Monitor sodium levels Elevated Troponin: Likely demand ischemia secondary to Uncontrolled HTN Patient denies chest pain/discomfort EKG: Non specific T wave changes in lateral leads Cardiac enzymes mildly elevated ECHO:No segmental left ventricular wall motion abnormalities are noted Advised stress test as outpatient Elevated Blood glucose levels: A1C:5.1 monitor Dyslipidemia: continue statins Alcohol use disorder: Drinks 6-8 beers per day continue thiamine, folic acid Patient prefers not to be started on alcohol withdrawal protocol meds for now monitor Tobacco use disorder: Chews tobacco Refuses Nicotine patch Insomnia: Likely secondary to infection in setting of chronic alcoholism Avoid Benzos BPH: Continue Terazosin DVT Px: Lovenox SQ Code Status: DNI only (OK with CPR) Disposition: Expect to discharge home when stable PROCEDURES: ECHO: * Normal LV chamber size with moderate concentric LVH, sigmoid appearing septum. * Normal LV systolic function, EF 60-65%. * No segmental left ventricular wall motion abnormalities are noted. * Grade I diastolic dysfunction. * Aortic valve sclerosis moderate, without significant aortic valvular stenosis. Vital Signs: Date Time Temp Pulse Resp B/P (MAP) Pulse Ox O2 Delivery O2 Flow Rate FiO2 08/18/17 08:00 Room Air 08/18/17 07:57 36.9 77 18 139/74 (95) 98 08/18/17 04:15 76 22 141/74 (96) 99 Room Air 08/18/17 04:00 Room Air 08/18/17 00:01 36.8 72 18 166/79 (108) 97 Room Air 08/17/17 23:59 Room Air 08/17/17 20:00 Room Air 08/17/17 19:14 36.5 68 18 107/66 (80) 98 Room Air 08/17/17 16:00 Room Air 08/17/17 15:34 36.2 67 19 141/81 (101) 96 Room Air 08/17/17 12:00 97 Room Air 08/17/17 11:33 36.8 66 18 125/69 (87) 95 Lab Results: Results Past 24 Hours Test 08/18/17 07:25 Range/Units White Blood Count 11.22 4.8-10.8 K/uL Red Blood Count 5.53 4.7-6.1 M/uL Hemoglobin 18.0 14.0-18.0 g/dL Hematocrit 50.9 42-52 % Mean Corpuscular Volume 92.0 80-100 fL Mean Corpuscular Hemoglobin 32.5 25-34 pg Mean Corpuscular Hemoglobin Concent 35.4 32-36 g/dl RDW Standard Deviation 46.9 36.4-46.3 fL RDW Coefficient of Variation 13.8 11.5-14.5 % Platelet Count 245 130-400 K/uL Mean Platelet Volume 10.6 7.4-10.4 fL Sodium Level 135 136-145 mmol/L Potassium Level 3.6 3.5-5.1 mmol/L Chloride Level 102 98-107 mmol/L Carbon Dioxide Level 17 21-32 mmol/L Anion Gap 16.0 3-11 mmol/L Blood Urea Nitrogen 20 7-18 mg/dl Creatinine 0.85 0.60-1.40 mg/dl Est Creatinine Clear Calc Drug Dose 70.9 ml/min Estimated GFR () 100.9 Estimated GFR (Non- 87.1 BUN/Creatinine Ratio 23.4 10-20 Random Glucose 179 70-99 mg/dl Calcium Level 8.6 8.5-10.1 mg/dl Magnesium Level 2.2 1.8-2.4 mg/dl
[2017-08-18] MEDS ORDERED: NURSING VERBAL MED ORDER ONE (16:00)
[2017-08-18] MEDS ORDERED: ONDANSETRON 4MG OD TAB PO PRN (16:00)
[2017-08-18] MEDS ORDERED: BOOST VANILLA PO SCH (20:00)
--- NOTE | 2017-08-18 22:21 | Progress Note ---
Internal Med Progress Note Date of Service: Aug 18, 2017. Provider Documentation: TONIA REYES called around 9:50 PM. As per RN account, patient found unresponsive on the floor by staff. CPR initiated. Code being led by Dr. Perez at bedside. No intubation given DO NOT INTUBATE specifications on admission. Initial PEA rhythm. Epinephrine, atropine, sodium bicarbonate doses given earlier as per RN . CPR stopped after conferring with patient's son, Mr. Justin Balderrama, over the phone. OBJECTIVE: Vital Signs-as noted below Exam: General-unresponsive to pain, no spont respiration HEENT- pale palp conj, dilated pupils not reactive to light Heart-no heartbeat Lungs- no spont respiration Patient pronounced at 1008 PM. Autopsy option offered to family given the absence of apparent cause for patient 's sudden demise on the medical floor. Patient was supposed to be discharged tomorrow as per patient's family's understanding. Family to contemplate on autopsy option. Will relay developments to AM provider. Dr. Gimenez to accomplish discharge summary. Vital Signs: Date Time Temp Pulse Resp B/P (MAP) Pulse Ox O2 Delivery O2 Flow Rate FiO2 08/18/17 20:45 78 147/77 (100) 08/18/17 16:10 Room Air 08/18/17 15:14 36.6 68 16 148/80 (102) 98 Lab Results:
--- NOTE | 2017-08-19 07:30 | Discharge Summary ---
Discharge Summary Date of Service Aug 19, 2017. Discharge Summary Admission Date: Aug 16, 2017 at 17:14 Discharge Disposition: Principal Diagnosis: Influenza, Chronic heavy Alcoholism Possible [place]/PE, Arrhythmia Secondary Diagnoses/Problems: Uncontrolled Hypertension due to Non compliance Procedures: CXR: No acute process. ECHO: * Normal LV chamber size with moderate concentric LVH, sigmoid appearing septum. * Normal LV systolic function, EF 60-65%. * No segmental left ventricular wall motion abnormalities are noted. * Grade I diastolic dysfunction. * Aortic valve sclerosis moderate, without significant aortic valvular stenosis. Consultations: None Admission Information HPI (per Admitting provider): Patient is a 72 yr male with PMH of HTN, dyslipidemia, Alcohol use disorder, Tobacco use and chronic hyponatremia presents with flu like symptoms since 3-4 days duration. Patient reports worsening generalized weakness and tiredness since days. Also reports having diarrhea 2 days ago which resolved. Patient reports nausea and so has been not eating well since 3 days and also has not been taking his medications since at least 4 days. He reports having rhinitis and dry cough since 4 days. Denies any chest pain, SOB, recent travel, sick contact, change in medications, fever, chills, recent antibiotic use, dizziness , pedal edema, headache, change in vision, vomiting, abdominal pain, blood in stools, dysuria. Patient admits to having 6-8 beers a day and his last drink was on Monday. Denies any issues with withdrawal previously. 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-XII nml as tested, no motor/sensory deficits, alert , normal mood/affect, oriented x 3 Skin: normal color, warm/dry Hospital Course Influenza B: Dehydration/Generalized weakness: Continue Tamiflu Day # 3 States diarrhea resolved Consider to get stool studies if diarrhea reoccurs Droplet precaution CXR:No acute process Recommended IV fluids due to poor oral intake and dehydration, Patient refused IV fluids on 08/18/17 Encouraged him to increase oral intake Uncontrolled Hypertension: Secondary to medication non compliance 2/2 nausea BP stable continue Amlodipine, Lisinopril, Atenolol, Hydralazine Plan to resume HCTZ as able monitor Acute on Chronic Hyponatremia: In setting of dehydration, chronic alcohol use and use of HCTZ Hold HCTZ Sodium levels near normal DC IV fluids Monitor sodium levels Elevated Troponin: Likely demand ischemia secondary to Uncontrolled HTN Patient denies chest pain/discomfort EKG: Non specific T wave changes in lateral leads Cardiac enzymes mildly elevated ECHO:No segmental left ventricular wall motion abnormalities are noted Advised stress test as outpatient Elevated Blood glucose levels: A1C:5.1 monitor Dyslipidemia: continue statins Alcohol use disorder: Drinks 6-8 beers per day continue thiamine, folic acid Patient prefers not to be started on alcohol withdrawal protocol meds for now monitor Tobacco use disorder: Chews tobacco Refuses Nicotine patch Insomnia: Likely secondary to infection in setting of chronic alcoholism Avoid Benzos BPH: Continue Terazosin DVT Px: Lovenox SQ Code Status: DNI only (OK with CPR) Disposition: Expect to discharge home when stable PROCEDURES: ECHO: * Normal LV chamber size with moderate concentric LVH, sigmoid appearing septum. * Normal LV systolic function, EF 60-65%. * No segmental left ventricular wall motion abnormalities are noted. * Grade I diastolic dysfunction. * Aortic valve sclerosis moderate, without significant aortic valvular stenosis. Patient was found to be unconscious, face down on floor by nursing associate at about 2150 and code blue was called. Patient was started on CPR as per ACLS protocol. Patient was found to have PEA on rhythm and did not respond to Epinephrine, atropine, sodium bicarbonate as per documentation. No pulse or respiration could be established. Family was informed and CPR was stopped after confirming with patient's son, Mr. Justin Balderrama, over the phone by the hospitalist aircraft inspection record clerk. Patient's main complaint was generalized weakness and lethargy during his hospital course and refused IV fluids on 08/18/17. Patient also informed staff that he did not need IV access and pulled it off by himself per Staff; known after later enquiry. Total time spent on discharge = This includes examination of the patient, discharge planning, medication reconciliation, and communication with other providers. Discharge Instructions Patient
== END 2017-08-18 22:08 | disposition expired | DRG 193 ==
LOC: C.EDB 13:11 → UNDOADMIN 17:14 → C.2T 17:14 → ENRESERV 17:53 → C.4E 08-18 10:21
PROVIDERS: ADMIT Internal Medicine; ATTEND Internal Medicine
PROC: 5A02115 Assistance with Cardiac Output using Pulsatile Compression, Intermittent (ICD-10-PCS; principal; 2017-08-18)
DX: J10.1 Influenza due to other identified influenza virus with other respiratory manifestations (principal); I21.9 Acute myocardial infarction, unspecified; E87.1 Hypo-osmolality and hyponatremia; I24.8 Other forms of acute ischemic heart disease; I49.8 Other specified cardiac arrhythmias; R73.09 Other abnormal glucose; G47.09 Other insomnia; I10 Essential (primary) hypertension; E78.5 Hyperlipidemia, unspecified; N40.0 Benign prostatic hyperplasia without lower urinary tract symptoms; F10.20 Alcohol dependence, uncomplicated; F17.220 Nicotine dependence, chewing tobacco, uncomplicated; Z51.81 Encounter for therapeutic drug level monitoring; Z79.899 Other long term (current) drug therapy; Z79.82 Long term (current) use of aspirin; Z91.14 Patient's other noncompliance with medication regimen; Z82.49 Family history of ischemic heart disease and other diseases of the circulatory system; Z82.3 Family history of stroke; Z80.1 Family history of malignant neoplasm of trachea, bronchus and lung